=== PATIENT | male | born 1955 | race Two or more races ===

== ENCOUNTER 2023-01-30 16:05 | Inpatient (IN) | payer OTHER ==
[~2023-01-30] VITALS: Ht 170.2 cm; Wt 88.0 kg
[2023-01-30] MEDS ORDERED: ONDANSETRON HCL 4 MG/2 ML VIAL IV ONE (16:30)
[2023-01-30] MEDS ORDERED: PANTOPRAZOLE 40 MG/10 ML VIAL INJ IV ONE ×2 (16:30→19:30)
[2023-01-30] MEDS ORDERED: SODIUM CHLORIDE 0.9% 500 ML IVB ONE (16:30)
[2023-01-30 16:48] LABS: Basophils # (auto) 0 10 ^3/uL (0-0.2); Basophils % (auto) 0.3 % (0.0-2.0); Eosinophils # (auto) 0 10 ^3/uL (0-0.8); Eosinophils % (auto) 0.6 % (0.0-7.0); Hematocrit 44.7 % (41.0-53.0); Hemoglobin 15.3 g/dL (13.5-17.5); Lymphocytes # (auto) 1.6 10 ^3/uL (0.4-5.4); Lymphocytes % (auto) 22.2 % (10.0-50.0); Mean Corpuscular Hemoglobin 30.1 pg (28.0-32.0); Mean Corpuscular Hgb Conc. 34.2 g/dL (32.0-36.0); Monocytes # (auto) 1.1 10 ^3/uL (0-1.3); Monocytes % (auto) 15.1 % (0.0-12.0); Neutrophils # (auto) 4.4 10 ^3/uL (1.6-8.6); Neutrophils % (auto) 61.8 % (37.0-80.0); Nucleated Red Blood Cells % 0.3 %; Red Blood Cells 5.09 10^6/uL (4.5-5.90); Red Cell Distribution Width 13.4 % (11.8-14.3); White Blood Cell 7.1 10^3/uL (4.4-10.8)
[2023-01-30 16:56] LABS: Albumin 2.9 g/dL (3.4-5.0); BUN/Creatinine Ratio 16.7 (10.0-20.0); Calcium 8.6 mg/dL (8.5-10.1); Magnesium 1.8 mg/dL (1.6-2.6); Potassium 3.5 mmol/L (3.5-5.1)
[2023-01-30 17:03] LABS: Bilirubin, Total 1.4 mg/dL (0.2-1.0); Total Protein 6.5 g/dL (6.4-8.2)
[2023-01-30 17:51] LABS: Urine Bacteria NONE SEEN /hpf (None Seen); Urine Blood Negative /uL (Negative); Urine Mucus FEW (None Seen); Urine Specific Gravity 1.026 (1.001-1.035); Urine WBC 4 /hpf (0 - 3)
[2023-01-30] MEDS ORDERED: MORPHINE SULFATE 4 MG/ML SYR/VIAL IV ONE (19:00)
[2023-01-30] MEDS ORDERED: ONDANSETRON HCL 4 MG/2 ML VIAL IV PRN (19:30)
[2023-01-30] MEDS ORDERED: MORPHINE SULFATE INJ 2 MG/ml SYRG IV PRN (19:30)
[2023-01-30] MEDS ORDERED: metroNIDAZOLE 500MG/100ML 100 ML IV ONE (19:30)
[2023-01-30] MEDS ORDERED: cefTRIAXone 1GM/50ML D5W 50 ML IV ONE (19:30)
[2023-01-30] MEDS ORDERED: metroNIDAZOLE 500MG/100ML 100 ML IV SCH (20:00)
[2023-01-30 20:28] LABS: Cholesterol 114 mg/dL (< 200)
[2023-01-30] MEDS ORDERED: SODIUM CHLORIDE 0.9% 1,000 ML IV ONE (20:30)
[2023-01-30 20:31] LABS: HDL Cholesterol 28 mg/dL (40-59); LDL Cholesterol 74 mg/dL (< 100); Triglycerides 133 mg/dL (< 150)
[2023-01-30 20:47] LABS: INR 0.99 (0.9-1.15)
[2023-01-30] MEDS: LACTATED RINGER'S 1,000 ML IV SCH (23:49)
[2023-01-31 05:18] LABS: Basophils # (auto) 0 10 ^3/uL (0-0.2); Basophils % (auto) 0.5 % (0.0-2.0); Eosinophils # (auto) 0.1 10 ^3/uL (0-0.8); Eosinophils % (auto) 1.2 % (0.0-7.0); Hematocrit 39.6 % (41.0-53.0); Hemoglobin 14.1 g/dL (13.5-17.5); Lymphocytes # (auto) 1.6 10 ^3/uL (0.4-5.4); Lymphocytes % (auto) 23.3 % (10.0-50.0); Mean Corpuscular Hemoglobin 31.1 pg (28.0-32.0); Mean Corpuscular Hgb Conc. 35.5 g/dL (32.0-36.0); Mean Corpuscular Volume 87.6 fL (80.0-100.0); Monocytes # (auto) 1.1 10 ^3/uL (0-1.3); Monocytes % (auto) 15.7 % (0.0-12.0); Neutrophils % (auto) 59.3 % (37.0-80.0); Nucleated Red Blood Cells % 0.4 %; Red Blood Cells 4.52 10^6/uL (4.5-5.90); Red Cell Distribution Width 13.3 % (11.8-14.3); White Blood Cell 6.7 10^3/uL (4.4-10.8)
[2023-01-31 05:39] LABS: Albumin 2.4 g/dL (3.4-5.0); BUN/Creatinine Ratio 17.3 (10.0-20.0); Calcium 8.1 mg/dL (8.5-10.1); Potassium 3.4 mmol/L (3.5-5.1)
[2023-01-31 05:41] LABS: Total Protein 5.9 g/dL (6.4-8.2)
[2023-01-31] MEDS: LACTATED RINGER'S 1,000 ML IV SCH ×2 (06:47→16:12)
[2023-01-31] MEDS ORDERED: cefTRIAXone 1GM/50ML D5W 50 ML IV SCH (09:00)
[2023-01-31] MEDS: PANTOPRAZOLE 40 MG/10 ML VIAL INJ IV SCH (10:00)
[2023-01-31] MEDS ORDERED: GASTROGRAFIN 120 ML SOL ONE (13:08)
[2023-01-31 17:00] VITALS: BP 142/69
[2023-01-31 17:09] VITALS: BP 142/69
[2023-01-31 17:59] VITALS: BP 128/76
[2023-01-31 22:00] VITALS: BP 135/74
[2023-02-01] MEDS: LACTATED RINGER'S 1,000 ML IV SCH ×3 (02:13→18:13)
[2023-02-01 05:00] VITALS: BP 142/76
[2023-02-01 08:00] VITALS: BP 143/78
[2023-02-01 09:10] VITALS: BP 143/78
[2023-02-01] MEDS: PANTOPRAZOLE 40 MG/10 ML VIAL INJ IV SCH (10:09)
[2023-02-01 11:59] VITALS: BP 153/86
[2023-02-01 17:00] VITALS: BP 157/85
[2023-02-01 22:00] VITALS: BP 152/82
[2023-02-02] MEDS: LACTATED RINGER'S 1,000 ML IV SCH (03:17)
[2023-02-02 05:00] VITALS: BP 149/79
[2023-02-02 09:03] VITALS: BP 149/91
[2023-02-02] MEDS: PANTOPRAZOLE 40 MG/10 ML VIAL INJ IV SCH (10:02)
[2023-02-02 12:30] VITALS: BP 140/81
[2023-02-02 15:52] VITALS: BP 140/81
== END 2023-02-02 18:00 | disposition home or self-care (01) | DRG 388 ==
LOC: ER 16:05 → OVERFLOW 19:28 → CENTRAL 01-31 16:56
PROVIDERS: ADMIT Nurse Practitioner Family; ATTEND Internal Medicine
PROC: 0D9670Z Drainage of Stomach with Drainage Device, Via Natural or Artificial Opening (ICD-10-PCS; principal; 2023-01-31)
DX: K56.699 Other intestinal obstruction unspecified as to partial versus complete obstruction (principal); E43 Unspecified severe protein-calorie malnutrition; K85.90 Acute pancreatitis without necrosis or infection, unspecified; E87.1 Hypo-osmolality and hyponatremia; E66.01 Morbid (severe) obesity due to excess calories; Z20.822 Contact with and (suspected) exposure to COVID-19; Z68.30 Body mass index [BMI] 30.0-30.9, adult
CPT/HCPCS: 36415; 74018; 74176; 74250; 80053; 80061; 81001; 83036; 83690; 83735; 84443; 84484; 85025; 85610; 87426; 93005; C9113; G0378; J0696; J2405